=== PATIENT | male | born 1965 | race Caucasian/White ===

== ENCOUNTER → 2017-08-22 | Outpatient (CLI) | payer OTHER ==
--- NOTE | 2017-08-22 17:06 | US ---
EXAM DESCRIPTION: Gall Bladder : Ultrasound. CLINICAL HISTORY: 51 years Male, RUQ PAIN COMPARISON: None. TECHNIQUE: Standard transabdominal scanning: Two-dimensional and Doppler modes. FINDINGS: Normal echogenicity of the gallbladder with no stones or sludge. Wall thickness 1.7 mm normal. No fluid around the gallbladder. Nontender with transducer pressure. Common bile duct 3.0 mm normal caliber. Increased echogenicity of the liver. Long axis of the right lobe is 15.4 cm. Normal intrahepatic ducts. Smooth capsule. Hepatopedal flow in the portal vein which is normal caliber. Normal caliber of the proximal IVC and aorta. Normal echogenicity of the pancreas. Size is unremarkable. Duct not seen. Right kidney long axis length 9.8 cm. Normal cortical thickness and echogenicity. No hydronephrosis. IMPRESSION: 1. Steatosis of the liver with normal intrahepatic ducts. Smooth capsule and no ascites. Nonenlarged. 2. Remaining organs of the right upper quadrant of the abdomen are unremarkable. Normal ultrasound of the gallbladder. Electronically signed by: Devante Gooden MD 08/22/2017 5:05 PM [facility]
== END ==
LOC: US 07:57
PROVIDERS: ATTEND Family Medicine
DX: R10.11 Right upper quadrant pain (principal); K76.0 Fatty (change of) liver, not elsewhere classified